=== PATIENT | male | born 1950 | race Caucasian/White ===

== ENCOUNTER 2022-03-17 13:02 | Outpatient (CLI) | payer MEDICARE, SELFPAY ==
--- NOTE | ~2022-03-17 | XR_ITS ---
EXAM: XR toe 3rd RT min 2V DATE: 03/17/2022 13:47 HISTORY: TRAUMA TO RT 3RD DIGIT 3 WEEKS AGO, PERSISTING PAIN . COMPARISON: None available. FINDINGS: Normal mineralization. Distracted avulsion fracture off of the anterior and proximal aspec t of the right third middle phalange, with likely intra-articular extension. No lytic or blastic lesi on. Joint spaces and physes are maintained. No erosion or periosteal change. Soft tissues within norm al limits. IMPRESSION: Distracted avulsion off the anterior and proximal aspect of the right third middle phalan ge, with likely intra-articular extension. Reviewed, dictated and finalized at location K. IMPRESSION: Distracted avulsion off the anterior and proximal aspect of the rig ht third middle phalange, with likely intra-articular extension.
--- NOTE | ~2022-03-17 | XR_ITS ---
EXAM: XR hip BI 2V w AP pelvis DATE: 03/17/2022 13:48 HISTORY: B/L HIP/GROIN PAIN X3 WEEKS, HX OF SURG LT HIP 2014 . COMPARISON: None available. FINDINGS: Decreased mineralization. No acute fracture or dislocation. No lytic or blastic lesion. Le ft hip arthroplasty without hardware fracture or abnormal perihilar hardware lucency. 2.3 cm ossific body adjacent to the right superior acetabulum, may reflect an extra-articular loose body or an old f ractured acetabular rim osteophyte. Degenerative change in the lower lumbar spine including large may dging osteophytes and vertebral body fusion. Bilateral SI joint fusion. Scattered pelvic and right gr eater tuberosity enthesopathy. Pelvic phleboliths. IMPRESSION: Left hip arthroplasty, without evident complication. Moderate degenerative change in the right hip. Changes of ankylosing spondylitis. Reviewed, dictated and finalized at location K. IMPRESSION: Left hip arthroplasty, without evident complication. Moderate degen erative change in the right hip. Changes of ankylosing spondylitis.
== END 2022-03-17 13:03 | disposition home or self-care (01) ==
DX: M25.551 Pain in right hip (principal); S93.104A Unspecified dislocation of right toe(s), initial encounter; R10.31 Right lower quadrant pain; R10.32 Left lower quadrant pain; T14.90XA Injury, unspecified, initial encounter; M79.89 Other specified soft tissue disorders; Z98.1 Arthrodesis status; M16.11 Unilateral primary osteoarthritis, right hip; M45.9 Ankylosing spondylitis of unspecified sites in spine
CPT/HCPCS: 73521; 73660

== ENCOUNTER 2023-05-19 11:14 | Outpatient (CLI) | payer MEDICARE, SELFPAY ==
--- NOTE | ~2023-05-19 | XR_ITS ---
XR knee RT 3V 05/19/2023 12:04 Indication: Acute pain. Procedure: 3 views right knee Comparison: No prior studies for comparison. Findings: Mild patellofemoral compartment osteoarthritis. No fracture or traumatic malalignment. No s ignificant joint effusion. No foreign bodies. Impression: 1: Mild patellofemoral compartment osteoarthritis. Reviewed, dictated and finalized at location B. Y PLAN SALES UNIT ADVISOR Impression: 1: Mild patellofemoral compartment osteoarthritis.
== END 2023-05-19 11:15 | disposition home or self-care (01) ==
PROVIDERS: Visit Provider Nurse Practitioner
DX: M17.11 Unilateral primary osteoarthritis, right knee (principal)
CPT/HCPCS: 73562

== ENCOUNTER 2025-01-18 01:06 | Emergency (ER) | payer MEDICARE, SELFPAY ==
--- NOTE | ~2025-01-18 | XR_ITS ---
XR soft tissue neck 01/18/2025 01:42 Indication: Possible toothpick foreign body swallowed Procedure: 2 views Soft tissues Comparison: No prior studies for comparison. 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 Severe mult ilevel uncinate and facet hypertrophy. No prevertebral soft tissue swelling. Epiglottis and aryepiglo ttic folds within normal limits. No subglottic narrowing. No evidence for enlargement of the lingual tonsils or adenoids. No foreign body. Impression: 1: Unremarkable neck soft tissues examination. Reviewed, dictated and finalized at location A. Impression: 1: Unremarkable neck soft tissues examination.
--- OUTSIDE RECORDS SUMMARY | 2025-01-18 01:09 | XMS_ITS | Clinical Summary ---
Author Organization [facility] Address [address] [place] [address] Phone Care Team Providers Care Edge Inker Name Role Phone Jensen Kenyon MD Primary Care Provider [phone] Bibiana Gallagher PRESS SET UP, STATION USHER Unavailable [phone] Allergies Active Allergy Reactions Criticality Noted Date Comments Ibuprofen Other (see Comments) Low 03/07/2013 Blisters in mouth Medications MAGNESIUM PO Take by mouth. Active POTASSIUM CHLORIDE PO Take by mouth. Active Zinc 50 MG Capsule Take by mouth. Active folic acid-vit B6-vit B12 0.8-10-0.115 MG Tablet Take 1 Tablet by mouth daily. Active Ascorbic Acid (VITAMIN C PO) Take by mouth. Active Active Problems Patient Care Coordination No te Formatting of this note migh t be different from the original. ~~ OF July 15, 2018 PATIENT DOES NOT QUALIFY FOR OCM~~NO DX/TX~~ Problem Noted Date Diagnosed Date Polyp of transverse colon 03/23/2022 Diverticulosis large intesti ne w/o perforation or abscess w/o bleeding 03/23/2022 Internal hemorrhoids without complication 2021 Right ureteral calculus 10/06/2018 Lumbar spondylitis 09/23/2017 Chronic right shoulder pain 12/13/2015 Osteoarthritis of left hip 04/17/2015 Erectile dysfunction Malaise and fatigue Calculus of kidney Flank pain Hematuria Dysuria Spondylosis of cervical joint with myelopathy Disturbance of skin sensation Carpal tunnel syndrome Hyperlipemia Resolved Problems Problem Noted Date Diagnosed Date Resolved Date BPH with obstruction/lower u rinary tract symptoms 08/20/2017 Family History Medical History Relation Name Comments Heart Disease Brother Wang Heart Attack Father Breast Cancer Mother No Known Problems Sister 1 Lina No Known Problems Sister 2 Bernadette Heart Disease Sister 3 Janette No Known Problems Sister 4 Joleen No Known Problems Sister 5 Reina Relation Name Status Comments Brother Wang Alive Father (Age 59) Mother (Age 69) Sister 1 Lina Alive Sister 2 Bernadette Alive Sister 3 Janette Sister 4 Joleen Alive Sister 5 Reina Alive Social History Tobacco Use Types Packs/Day Years Used Date Smoking Tobacco: Never Smokeless Tobacco: Never Alcohol Use Standard Drinks/Week Comments Yes 0 (1 standard drink = 0.6 oz pur e alcohol) occasionally PHQ-2 Answer Date Recorded PHQ-2 Score 0 03/13/2019 Sexually Active Control Partners Comments Yes Female Sex and Gender Information Value Date Recorded Sex Assigned at Not on file Legal Sex Male 8:48 AM CDT Gender Identity Not on file Sexual Orientation Not on file Last Filed Vital Signs Vital Sign Reading Time Taken Comments Blood Pressure 126/76 03/23/2022 12:27 PM CDT Pulse 45 03/23/2022 12:27 PM CDT Temperature 36.6 C (97.8 F) 03/23/2022 11:01 AM CDT Respiratory Rate 18 03/23/2022 12:27 PM CDT Oxygen Saturation 95% 03/23/2022 12:27 PM CDT Inhaled Oxygen Concentration - - Weight 88.5 kg (195 lb) 03/23/2022 11:13 AM CDT Height 185.4 cm (6' 1) 03/23/2022 11:13 AM CDT Body Mass Index 25.73 03/23/2022 11:13 AM CDT Plan of Treatment Health Maintenance Due Date Last Done Comments Parul 1994 Immunochemical Fecal Occult Blood 1994 Zoster Immunization (1 of 2) 1999 SARS-COV-2 Immunization (2023- season) 2024 Respiratory Syncytial Virus (RSV) Immunization (Adult) (1 - 1-dose 75+ series) 2024 Influenza Immunization (#1) 2025 Colonoscopy 03/23/2032 03/23/2022 Colorectal Cancer Screening 03/23/2032 Pneumococcal Immunization (5 0+ years) Completed 05/06/2017, 2014 Pneumococcal Immunization Combined Discontinued 05/06/2017, 2014 DTaP/Tdap/Td Immunization Discontinued 2017, 12/05/2017 TdaP Immunization Completed 12/06/2017, 12/05/2017 Hepatitis C Virus (HCV) Screening Completed 10/05/2018 Hepatitis B Immunization Aged Out No longer eligible based on patient's age to complete this topic Human Papillomavirus (HPV) Immunization Aged Out No longer eligible based on patient's age to complete this topic Meningococcal Immunization (ACWY) Aged Out No longer eligible based on patient's age to complete this topic Rotavirus Immunization Aged Out No lo nger eligible based on patient's age to complete this topic Medical Devices Implanted Type Area Machine Driller Device Identifier Shelf Expiration Date Model / Serial / Lot Continuum Shell Cluster [id number] - [id number] Implanted:Qty: 1 on 04/18/2015 by Harvey Johnson MD at [facility] IMPLANT Left: Hip [employer] 09/25/2024 [id number] / / [id number] Bone Screw 6.5x30 Self-Tap [id number] - [id number] Implanted:Qty: 1 on 04/18/2015 by Harvey Johnson MD at [facility] IMPLANT Left: Hip [employer] 12/25/2024 [id number] / / [id number] Bone Screw 6.5x25 Self-Tap [id number] - [id number] Implanted:Qty: 1 on 04/18/2015 by Harvey Johnson MD at [facility] IMPLANT Left: Hip [employer] 10/26/2023 [id number] / / [id number] M/L Taper Size 12.5 Extended Offset - [id number] Implanted:Qty: 1 on 04/18/2015 by Harvey Johnson MD at [facility] IMPLANT Left: Hip [employer] 10/25/2024 [id number] / / [id number] Femoral Head 12/14 Cocr 36mm +0 - [id number] Implanted:Qty: 1 on 04/18/2015 by Harvey Johnson MD at [facility] IMPLANT Left: Hip [employer] 01/25/2025 [id number] / / [id number] Cys Stent [employer] [id number] Ureteral - [id number] Implanted:Qty: 1 on 10/06/2018 by Tj Beavers MD at [facility] IMPLANT Right: Ureter COOK / INTERVENTIONAL UROLOGY 08/10/2021 [id number] / / [id number] Continuum Trilogy It Allofit It Acetabular Systems Vivacit-E Highly Crosslinked Polyethylene Neutral Liner 36mm Implanted:Qty: 1 on 04/18/2015 by Harvey Johnson MD at [facility] Left: Hip 09/26/2019 [id number] / / [id number] Insurance MEDICARE C [facility] MEDICARE [facility] MEDICARE * Guarantor: JONNA WHITE Account Type Relation to Patient Date of Phone Billing Address Third Alliance Party Liability Self 1950 [address] [place] [address] [employer] Care Teams Edge Inker Relationship Specialty Start Date End Date Jensen Kenyon MD [address] [address] PCP - General Internal Medicine 02/01/15 Bibiana Gallagher APRN, STATION USHER [address] [place] [address] Consulting Physician Urological Surgery 04/13/18
--- OUTSIDE RECORDS SUMMARY | 2025-01-18 01:09 | XMS_ITS | Encounter Summary ---
Author Organization [facility] Address [address] [place] [address] Phone Care Team Providers Care [employer] Fabrication Supervisor Name Role Phone Jensen Kenyon MD Primary Care Provider [phone] Bibiana Gallagher PLUMBING ASSEMBLER, SEWER SEPARATION DESIGNER Unavailable [phone] Liz Hoffmann PLUMBING ASSEMBLER, SEWER SEPARATION DESIGNER Unavailable [phone] Reason for Visit * Reason Onset Date Comments Appointment 08/20/2021 Encounter Details Date Type Department Care Team (Late st Contact Info) Description 08/20/2021 Telephone [facility] [place] [address] [place] [phone] Jericho Silverman MD [address] [place] [address] DR LOPEZ [address] [place] [id number] Appointment Social History Tobacco Use Types Packs/Day Years [...] on file Sexual Orientation Not on file documented as of this encounter Miscellaneous Notes * Telephone Encounter - Mya King E - 08/21/2021 7:47 AM CST He has been added to your schedule for 09/29 @ 1:30PM DOWEL MACHINE OPERATOR * Telephone Encounter - Jericho Silverman MD - 08/20/2021 3:04 PM CST Mya he does not need to be referred back OK to give him next available regular EP appt.By: JERICHO SILVERMAN MD; 08/20/2021, 3:04 PM WOOD DOWEL MACHINE OPERATOR DOWEL MACHINE OPERATOR * Telephone Encounter - Demertia Kinghellen Grant - 08/20/2021 2:[address] Silverman, Pt called in wanting to get an sophia w/ you due to having some Carpal Tunnel issues at the moment. Hehasn't been seen by you in 3-4 years, advised the pt that we would need a referral sent over but I would still forward the msg to you. DOWEL MACHINE OPERATOR documented in this encounter Plan of Treatment Not on file documented as of this encounter Visit Diagnoses Not on filedocumented in this encounter Additional Health Concerns Assessment Noted Time PHQ-9 Depression Total Score: 0 01/27/20 19 10:54 AM CDT documented as of this encounter Care Teams [employer] Fab[employer] Supervisor Relationship Specialty Start Date End Date Jensen Kenyon MD [address] [address] PCP - General Internal Medicine 02/01/15 Bibiana Gallagher APRN, SEWER SEPARATION DESIGNER [address] [place] [address] Consulting Physician Urological Surgery 04/13/18 Liz Hoffmann APRN, SEWER SEPARATION DESIGNER [address] [place] [address] Nurse Practitioner Orthopaedic Surgery 10/05/18 4 documented as of this encounter
--- OUTSIDE RECORDS SUMMARY | 2025-01-18 01:09 | XMS_ITS | Encounter Summary ---
Author Organization [facility] Address [address] [place] [address] Phone Care Team Providers Care Slot Operations Manager Name Role Phone Jensen Kenyon MD Primary Care Provider [phone] Bibiana Gallagher HOUSE SHORER, COOK CASHIER FOOD PREP Unavailable [phone] Liz Hoffmann HOUSE SHORER, COOK CASHIER FOOD PREP Unavailable Encounter Details Date Type Department Care Team (Latest Contact Info) Description 04/16/[address] [facility] Services [address] [place] [address] Ok Canas, PAC [address] [place] [address] Benign prostatic hyperplasia, unspecified whether lower urinary tract symptoms present (Primary Dx) Social History Tobacco Use Types Packs/Day Years [...] on file documented as of this encounter Plan of Treatment Not on file documented as of this encounter Results * PSA DIAGNOSTIC,TOTAL (08/15/2020 9:55 AM SUBSTANCE ADDICTION COORDINATOR) PSA, TOTAL (PROSTATIC SPECIFIC ANTIGEN) 1.47 0.00 - 4.00 ng/mL 08/15/2020 11:33 AM SUBSTANCE ADDICTION COORDINATOR [facility] Comment:Performed by chemilu minometric assay on the Siemens ADVIA Centaur. Values obtained with different methods cannot be used interchangeably for patient monitoring. PSA is not a specific test for prostatic carcinoma and can be elevated with benign prostatic disease or following prostatic manipulation. Heterophilic antibodies may interfere with this assay. Blood Venipuncture / Unknown 08/15/2020 9:55 AM SUBSTANCE ADDICTION COORDINATOR 08/15/2020 10:34 AM SUBSTANCE ADDICTION COORDINATOR us Ok Canas PAC CHEMISTRY ORDERABLES Final Res ult [facility] [address] [place], [place] [id number] documented in this encounter Visit Diagnoses Diagnosis Benign prostatic hyperplasia, unspecified whether lower urinary tract symptoms present- Primary documented in this encounter Additional Health Concerns Assessment Noted Time PHQ-9 Depression Total Score: 0 01/27/20 19 10:54 AM CDT documented as of this encounter Care Teams Slot Operations Manager Relationship Specialty Start Date End Date Jensen Kenyon MD [address] [facility] [address] [place], [place] [id number] PCP - General Internal Medicine 02/01/15 Bibiana Gallagher APRN, COOK CASHIER FOOD PREP [address] [place] [address] Consulting Physician Urological Surgery 04/13/18 Liz oHffmann APRN, COOK CASHIER FOOD PREP [address] [place] [address] Nurse Practitioner Orthopaedic Surgery 10/05/18 4 documented as of this encounter
[2025-01-18 01:11] VITALS: BP 167/90; PULSE 50; RESP 18; TEMP 36.3; O2SAT 98
[2025-01-18 02:04] VITALS: BP 141/82; PULSE 44; RESP 19; O2SAT 96
[2025-01-18 02:31] LABS: Hematocrit 39.0 % (42.0-52.0); Hemoglobin 12.9 g/dL (14.0-18.0); Immature Granulocyte Percent A 0.0 % (0-0.5); Lymphocytes Absolute Auto 1.60 K/mm3 (0.9-3.2); Mean Corpuscular HGB Conc 33.1 g/dl (32-36); Mean Corpuscular Hemoglobin 32.4 pg (26-34); Mean Corpuscular Volume 98.0 fl (80-100); Nucleated Red Blood Cells Absolute Auto 0.000 K/mm3 (0.0-0.012); Nucleated Red Blood Cells Perc 0.0 % (0.0-0.2); Platelet Count Result 150 k/mm3 (150-375); Red Blood Count 3.98 M/mm3 (4.6-6.20); White Blood Count 4.6 K/mm3 (4.5-10.0)
[2025-01-18 02:52] LABS: Alanine Aminotransferase 23 U/L (6-50); Albumin Level 3.9 g/dL (3.5-5.1); Alkaline Phosphatase 83 U/L (38-126); Anion Gap 7 mmol/L (4-12); Aspartate Amino Transferase 31 U/L (17-59); Bilirubin,Total 0.4 mg/dL (0.2-1.3); Blood Urea Nitrogen 14 mg/dL (9-20); Calcium 8.9 mg/dL (8.4-10.2); Carbon Dioxide 25 mmol/L (22-30); Chloride 106 mmol/L (98-107); Estimated CRCL calculation 78 ml/min; Estimated Glomerular Filt Rate > 60; Glucose 105 mg/dL (65-110); Potassium 3.9 mmol/L (3.4-5.0); Sodium 138 mmol/L (137-145); Total Protein 6.9 g/dL (6.3-8.2)
[2025-01-18 03:00] VITALS: BP 129/84; PULSE 44; RESP 16; O2SAT 96
--- NOTE | 2025-01-18 03:29 | ED_ITS ---
HPI - Skin/Abscess/Foreign Bdy General Chief complaint: Skin/Abscess/Foreign Body Stated complaint: have tooth pick stuck in throat Time Seen by Provider: 01/18/25 03:28 Source: patient Mode of arrival: ambulatory Limitations: no limitations History of Present Illness HPI narrative: Patient presents with concern for a toothpick/half a toothpick stuck in his throat. He fell asleep with this in his month and believes he partially swallowed it. States he can feel it with his finger he puts this back of his mouth. Woke up at 11:30 a.m. with the symptoms. Denies any shortness of breath or chest pain he is having some right neck pressure. While awaiting further assessment, he then states that he believes he swallowed it as he no longer feels that in same location, cannot feel it at all. Not on anticoagulation. Last oral intake 5 p.m.. States when he could still feel the end with his finger it still had some firmness/rigidity to it. Exam 2 Narrative: GENERAL: Well-appearing, well-nourished, and in no acute distress. HEAD: Normocephalic, atraumatic. EYES: Non injected, non icteric ENT: Nares clear, no rhinorrhea or epistaxis. Gross auditory acuity intact. NECK: Supple. No meningismus. CHEST: Speaking in full sentences. No respiratory distress. No stridor. Nonlabored HEART: Bradycardic rate and rhythm. . ABDOMEN: Soft, nondistended. EXTREMITIES: Normal range of motion. No lower extremity edema. SKIN: Warm, dry, no rash. NEURO: No focal deficits. Alert and oriented. Answering questions. Following commands. Normal speech without aphasia or dysarthria. PSYCH: Normal mood and affect. Course Vital Signs Vital signs: Vital Signs Temperature 97.4 F L 01/18/25 01:11 Pulse Rate 50 L 01/18/25 01:11 Respiratory Rate 18 01/18/25 01:11 Blood Pressure 167/90 H 01/18/25 01:11 Pulse Oximetry 98 01/18/25 01:11 Oxygen Delivery Room Air 01/18/25 01:11 Temperature 97.4 F L 01/18/25 01:11 Pulse Rate 43 L 01/18/25 04:00 Respiratory Rate 17 01/18/25 04:00 Blood Pressure 134/80 01/18/25 04:00 Pulse Oximetry 97 01/18/25 04:00 Oxygen Delivery Room Air 01/18/25 01:11 MDM - Skin/Abscess/Foreign Bdy MDM Narrative Medical decision making narrative: Patient presents with concern for a toothpick / half toothpick stuck in the back of his throat. He states he fell asleep with this in his mouth about 11 30 he and felt like he had partially swallowed it and it was in the back was throat. States he could feel it with his finger when he tried to remove it himself but was unable to grab and pull it out. States it still had a bit of rigidity the/firmness to it. In the emergency department he is afebrile vital signs notable for hypertension and bradycardia. Normocytic anemia. While awaiting assessment in the emergency department, he does state that he believes he swallowed a toothpick. Still has a bit of residual right neck pressure. Not apparent on plain film. Advised that the next step would need to be pursuing CT imaging to determine location of the foreign body, especially given that it represents a high perforation risk. Patient not desiring to proceed with CT imaging of neck/soft tissue & chest. Patient states he recently had CT imaging given he had a kidney stone he does not want another CT. It was explaiend multiple times the utility of this study especially to note the location in if endoscopy versus bronchoscopy versus alternative interventions would be required. No ENT coverage currently. Discussed with GI Dr Mora approximately 04:45am who advises I try again to recommend imaging as he can not proceed with endoscopy without confirmation given risks of anesthesia, etc. Extensive conversation was had with the patient at bedside to again encourage proceeding and why we do so. He is otherwise of sound mind and does not appear to be altered in a way that would prevent him from making decisions for himself. He is choosing to leave against medical advice at this time. We discussed the risks and benefits and he did sign documentation that was placed in his chart. I did encourage him to return to the emergency department at any time for new or worsening symptoms and he acknowledges and verifies understanding. He was given a brief discharge packet of instructions to review. Differential Diagnosis Differential diagnosis: Likely other (Perforation of tissues of posterior oropharynx/neck; foreign body in posterior oropharynx verses upper airway verses lower airway verses GI tract) Lab Data Attestation: I reviewed the patient's lab results. Lab results narrative: Normal renal function 01/18/25 02:23 01/18/25 02:23 Labs: Lab Results 01/18/25 Range/Units 02:23 WBC 4.6 (4.5-10.0) K/mm3 RBC 3.98 L (4.6-6.20) M/mm3 Hgb 12.9 L (14.0-18.0) g/dL Hct 39.0 L (42.0-52.0) % MCV 98.0 (80-100) fl MCH 32.4 (26-34) pg MCHC 33.1 (32-36) g/dl RDW 13.3 (11.5-14.5) % Plt Count 150 (150-375) k/mm3 MPV 10.3 (7.4-10.4) fl Immature Gran % (Auto) 0.0 (0-0.5) % Neut % (Auto) 53.7 (45.5-73.1) % Lymph % (Auto) 34.6 (18.3-44.2) % [place] % (Auto) 8.9 H (2.6-8.5) % Eos % (Auto) 2.4 (0-4.4) % Baso % (Auto) 0.4 (0.2-1.2) % Lymph # (Auto) 1.60 (0.9-3.2) K/mm3 [place] # (Auto) 0.4 (0.1-0.6) K/mm3 Eos # (Auto) 0.1 (0-0.3) K/mm3 Baso # (Auto) 0.0 (0.0-0.1) K/mm3 Abs Immat Gran (auto) 0.00 (0.00-0.031) K/mm3 Absolute Neuts (auto) 2.5 (1.3-6.7) K/mm3 Absolute Nucleated RBC 0.000 (0.0-0.012) K/mm3 Nucleated RBC % 0.0 (0.0-0.2) % Sodium 138 (137-145) mmol/L Potassium 3.9 (3.4-5.0) mmol/L Chloride 106 (98-107) mmol/L Carbon Dioxide 25 (22-30) mmol/L Anion Gap 7 (4-12) mmol/L BUN 14 (9-20) mg/dL Creatinine 0.80 (0.7-1.3) mg/dL Estim Creat Clear Calc 78 ml/min Estimated GFR > 60 (59 - ) Glucose 105 (65-110) mg/dL Calcium 8.9 (8.4-10.2) mg/dL Total Bilirubin 0.4 (0.2-1.3) mg/dL AST 31 (17-59) U/L ALT 23 (6-50) U/L Alkaline Phosphatase 83 (38-126) U/L Total Protein 6.9 (6.3-8.2) g/dL Albumin 3.9 (3.5-5.1) g/dL Imaging Data Radiologist's impression: CXR Soft TIssue Neck Stat Rad: The retropharyngeal soft tissues appear within normal limits. The epiglottis is normal. No radiopaque foreign bodies identified. A tooth PEG (sic) can be hard to visualize on plain film. If clinically indicated consider CT chest for further evaluation. Truc-ff-[id number] degenerative changes in the cervical spine. No incidental findings. Discharge Plan Discharge Clinical Impression: Normocytic anemia Foreign body, swallowed Qualifiers: Encounter type: initial encounter Qualified Code(s): T18.9XXA - Foreign body of alimentary tract, part unspecified, initial encounter Patient Disposition: Left Against Medical Advice Condition: Stable Instructions: Esophageal Foreign Body (ED), Anemia (ED), Foreign Body in the Pharynx (ED), Foreign Body Ingestion (ED) Additional Instructions: Your choosing to leave without proceeding with a CT scan. Do not hesitate to return to the emergency department at any time with any new or worsening symptoms. Patient Language: Croatian Follow-up/Referrals: PHYSICIAN,SENIOR FINANCIAL CONSULTANT [Primary Care Provider] - Time of Disposition: 05:03
--- OUTSIDE RECORDS SUMMARY | 2025-01-18 03:34 | XMS_ITS | Clinical Summary ---
Author Organization [facility] Address [address] [place] [address] Care Team Providers Care Asset Protection Associate Name Role Phone Mary Chen INVENTORY ASSOCIATE Unavailable [phone] Edwin Jensen MD Primary Care Provider [phone] Allergies Active Allergy Reactions Criticality Noted Date Comments Ibuprofen Other (see comment),Unknown Low 03/07/2013 Blisters in mouth Blisters in mouth Medications multi vitamin/minerals tablet Take 1 tablet by mouth as needed. Active Zinc 50 MG Cap Take 1 capsule by mouth twice a week. With medication changes pt only takes vitamins 2-3x q week Active Pyridoxine HCl (VITAMIN B-6 OR) Take 1 tablet by mouth daily. Active MAGNESIUM OR Takes several days per week Active POTASSIUM OR Takes several days per week Active finasteride (PROSCAR) 5 MG tabletIndications:Benig n prostatic hyperplasia with urinary hesitancy Take 1 tablet (5 mg total) by mouth daily. 90 tablet 1 10/25/19 25 Active methocarbamol (ROBAXIN) 750 MG TabIndications:Chronic midline low back pain without sciatica Take 1 tablet (750 mg total) by mouth 3 (three) times daily as needed. 180 tablet 1 10/25/19 25 Active tamsulosin (FLOMAX) 0.4 MG CapIndications:Benign prostatic hyperplasia with urinary hesitancy Take 1 capsule (0.4 mg total) by mouth daily. 90 capsule 3 10/25/19 25 2025 Active sildenafil (VIAGRA) 50 MG tabletIndications:Erect ile dysfunction, unspecified erectile dysfunction type Take nightly as needed for ED 10 tablet 3 10/25/19 25 Active evolocumab (REPATHA) 140 MG/ML injection (SYRINGE)Indications:Pu re hypercholesterolemia Inject 1 mL (140 mg total) into the skin every 14 (fourteen) days. 2 mL 2 10/25/19 25 Active traMADol (ULTRAM) 50 MG tabletIndications:Chron ic Pain Take 1 tablet (50 mg total) by mouth daily as needed for Pain. Indications: Chronic Pain 30 tablet 10/25/19 25 Active Active Problems Problem Noted Date Diagnosed Date Lung nodule seen on imaging study 05/27/2023 Internal hemorrhoids without complication 2021 Polyp of transverse colon 03/23/2022 Diverticulosis large intesti ne w/o perforation or abscess w/o bleeding 03/23/2022 Right ureteral calculus 10/06/2018 Onychomycosis 10/05/2018 Osteoarthritis of multiple joints 05/09/2018 Assessment & Plan (05/09/2018 10:02 AM MOLECULAR SPECTROSCOPIST): For neck u seen dr edwards Back still bothering Not even tylenol History of kidney stones 05/09/2018 Assessment & Plan (05/09/2018 10:04 AM MOLECULAR SPECTROSCOPIST): Seen urology Multiple surgeries atleast three times Last episode >4yrs Primary insomnia 05/09/2018 Assessment & Plan (05/09/2018 10:05 AM MOLECULAR SPECTROSCOPIST): don helping Half tab at bed time r donef* Calculus of kidney 05/09/2018 Assessment & Plan (05/09/2018 10:09 AM MOLECULAR SPECTROSCOPIST): Urine dip stick for blood in the urine* Hyperlipemia 04/26/2018 Assessment & Plan (05/09/2018 10:01 AM MOLECULAR SPECTROSCOPIST): Diet controlled Much better in recent labs Alberto in 1yr Encourage diet Vitamin D deficiency 09/24/2017 Osteoarthritis of left hip 04/17/2015 Assessment & Plan (05/09/2018 10:04 AM MOLECULAR SPECTROSCOPIST): Left hip arthoplasty by dr espinoza stable Enlarged prostate 2014 Benign prostatic hyperplasia 12/12/2013 Assessment & Plan (05/09/2018 10:00 AM MOLECULAR SPECTROSCOPIST): Seen INVENTORY ASSOCIATE with dr prater Not on meds Last psa jul 2017 normal Esophageal reflux 04/06/2013 Assessment & Plan (05/09/2018 10:00 AM MOLECULAR SPECTROSCOPIST): asymtomatic Never had ulcers Not on meds any more Just watching with certsain foods Resolved Problems Problem Noted Date Diagnosed Date Resolved Date Elevated LDL cholesterol level 06/18/2014 05/09/2018 Encounters Date Type Department Care Team Description 12/25/2024 Telephone [place] [address] [facility] [address] [place] [address] Edwin Jensen MD Appointment Request 10/26/2024 Telephone [place] [address] [facility] [address] [place] [address] Edwin Jensen MD Medication Information 10/26/2024 Travel 10/25/2024 Telephone [place] [address] [facility] [address] [place] [address] Edwin Jensen MD Information; Returned Call 10/24/2024 9:00 AM CDT Office Visit [place] [address] [place] [address] Edwin Jensen MD Follow Up; Hyperlipidemia; Erectile Dysfunction; Benign Prostatic Hypertrophy; Insomnia NOS; Vitamin D Deficiency; Arthritis (Multiple joints); GERD 10/24/2024 Results Follow-Up [place] [address] [facility] [address] [place] [address] Edwin Jensen MD LIPID PANEL, COMPREHENSIVE METABOLIC PANEL, CBC W/DIFF AUTOMATED, MG/PCCL UDS SCREEN 10/24/2024 Travel from Last 3 Months Immunizations Immunization Administration Dates Next Due Influenza Adult (Generic) 09/07/2022(Def erred: Patient/family declined),05/10/2020(Deferred: Patient Refused) Pneumococcal (Pneumovax 23) 2014 Pneumococcal (Prevnar 13) 05/06/2017 Tdap (Generic) 12/05/2017 Family History Medical History Relation Comments Heart Attack Father Cancer Mother Bone Cancer Hypertension Mother Relation Status Comments Father Mother Social History Tobacco Use Types Packs/Day Years Used Date Smoking Tobacco: Never Smokeless Tobacco: Never Tobacco Cessation:Counseling Given: Yes Comments:Counseled by Dr. Jensen. Alcohol Use Standard Drinks/Week Comments Yes 0 (1 standard drink = 0.6 oz pur e alcohol) MONTHLY PHQ-2 Answer Date Recorded Patient Health Questionnaire-2 Score 1 04/25/2024 Sex and Gender Information Value Date Recorded Sex Assigned at Male 08/10/2024 7:36 AM MOLECULAR SPECTROSCOPIST Legal Sex Male 8:42 PM CDT Gender Identity Not on file Sexual Orientation Not on file Last Filed Vital Signs Vital Sign Reading Time Taken Comments Blood Pressure 108/57 10/24/2024 9:01 AM CDT Pulse 47 10/24/2024 9:01 AM CDT Temperature 35.6 C (96.1 F) 10/24/2024 9:01 AM CDT Respiratory Rate 16 10/24/2024 9:01 AM CDT Oxygen Saturation 96% 10/24/2024 9:01 AM CDT Inhaled Oxygen Concentration - - Weight 90.3 kg (199 lb) 10/24/2024 9:01 AM CDT Height 185.4 cm (6' 1) 10/24/2024 9:01 AM CDT Body Mass Index 26.25 10/24/2024 9:01 AM CDT Plan of Treatment Upcoming Encounters Date Type Department Care Team (Late st Contact Info) Description 04/25/2025 9:40 AM CDT Office Visit [facility] - [place] [address] [address] [place] [address] Edwin Jensen MD [address] [place] [id number] Health Maintenance Due Date Last Done Comments RSV Immunization or 60+ Years (1 - 1-dose 75+ series) 2024 PHQ-2 (Physician [place]) 06/28/2024 04/25/2024 COVID-19 Vaccine ( - season) 2025 Postponed from 02/27/2024 (Patient Refused) Zoster Vaccines (1 of 2) 04/25/2025 Pos tponed from 1999 (Patient Refused) DTaP, Tdap and Td Vaccines (2 - Td or Tdap) 12/06/2027 12/05/2017 Colorectal Cancer Screening Colonoscopy (10 Years) 03/23/2032 03/23/2022, 02/12/2017, 02/04/2012, Additional history exists Annual Medicare Wellness Visit 06/02/2040 05/27/2022 Postponed from 05/28/2023 (Patient Refused) Pneumococcal Vaccine: 50+ Years Completed 05/06/2017, 2014 Hepatitis C Completed 10/05/2018 Colorectal Cancer Screening FIT-DNA (3 Years) Discontinued 05/18/2019 Meningococcal B Vaccine Aged Out No l onger eligible based on patient's age to complete this topic Meningococcal Vaccine Aged Out No charlene chanel eligible based on patient's age to complete this topic RSV Immunizations Under 20 Months Aged Out No longer eligible based on patient's age to complete this topic Procedures Procedure Name Priority Date/Time Associated Diagnosis Comments CBC W/DIFF AUTOMATED Routine 10/24/2024 9:49 AM CDT Drug therapy COMPREHENSIVE METABOLIC PANEL Routine 10/24/2024 9:49 AM CDT Drug therapy LIPID PANEL Routine 10/24/2024 9:49 AM CDT Drug therapy MG/PCCL UDS SCREEN Routine 10/24/2024 9: 49 AM CDT Drug therapy COLLECTION VENOUS BLOOD VENIPUNCTURE Routine 10/24/2024 9:46 AM CDT Drug therapy COLONOSCOPY GENERIC (SCAN ORDER) Routine 03/23/2022 12:00 AM CDT COLOGUARD (SCAN ORDER) Routine 05/18/2019 HEPATITIS C ANTIBODY Routine 10/05/2018 8:50 AM CDT Dermatophytosis of nail from Last 3 Months or Most Recently Relevant to Health Maintenance Results * MG/PCCL UDS SCREEN (10/24/2024 9:49 AM CDT) FENTANYL SCREEN (U) NEGATIVE <0.5 ng/mL [facility] Comment: See Note A See Note A MORPHINE (U) NEGATIVE <10 ng/mL [facility] Comment: See Note A See Note A AMPHETAMINES PM NEGATIVE <500 ng/mL [facility] Comment: See Note A See Note A BARBITURATES PM (U) NEGATIVE <300 ng/mL [facility] Comment: See Note A See Note A BENZODIAZEPINES PM (U) NEGATIVE <100 ng/mL [facility] Comment: See Note A See Note A COCAINE METABOLITE PM (U) NEGATIVE <150 ng/mL [facility] Comment: See Note A See Note A MARIJUANA METABOLITE PM (U) NEGATIVE <20 ng/mL [facility] Comment: See Note A See Note A METHADONE PM (U) NEGATIVE <100 ng/mL [facility] Comment: See Note A See Note A OPIATES PM (U) NEGATIVE <100 ng/mL [facility] Comment: See Note A See Note A OXYCODONE PM (U) NEGATIVE <100 ng/mL [facility] Comment: See Note A See Note A CREATININE RANDOM (U) 98.0 > or = 20.0 mg/dL [facility] pH PM (U) 5.5 4.5 - 9.0 [facility] OXIDANT NEGATIVE <200 mcg/mL [facility] NOTE [facility] Comment: This drug testing is for medical treatment only. Analysis was performed as non-forensic testing and these results should be used only by healthcare providers to render diagnosis or treatment, or to monitor progress of medical conditions. Note A: The results are presumptive; based only on screening methods, and they have not been confirmed by a definitive method. LDT Notes: Confirmation tests were developed and their analytical performance characteristics have been determined by [facility]. It has not been cleared or approved by the FDA. This assay has been validated pursuant to the CLIA regulations and is used for clinical purposes. Healthcare Providers needing Interpretation assistance, please contact us at [phone] ( ) M-F, 8am to 10pm EST URINE SPECIMEN / Unknown 10/24/2024 9:49 AM CDT 10/27/2024 1:20 AM CDT Narrative Resulting Agency Comment Performing Organization Information: Site ID: [id number] Name: [facility] Address: [address] [place] [address] Director: Wil Spencer Site ID: [id number] Name: [facility] Address: [address] [place] [address] Director: Reinaldo Samano MD us Edwin Jensen MD URINE ORDERABLES Final Result [facility] [place] [address] [place] [address] [employer] [address] [place] [address], * (ABNORMAL) COMPREHENSIVE METABOLIC PANEL (10/24/2024 9:49 AM CDT) SODIUM S/P/B 144 136 - 145 MMOL/L 10/24/2024 3:50 PM CDT [facility] POTASSIUM S/P/B 4.4 3.5 - 5.1 MMOL/L 10/24/2024 3:50 PM CDT [facility] CHLORIDE S/P/B 109(H) 98 - 107 MMOL/L 10/24/2024 3:50 PM CDT [facility] CO2 27.7 21 - 32 MMOL/L 10/24/2024 3:50 PM CDT [facility] GLUCOSE 92 70 - 99 MG/DL 10/24/2024 3:50 PM CDT [facility] BUN 15 7 - 18 MG/DL 10/24/2024 3:50 PM CDT [facility] CREATININE S/P/B 0.80 0.70 - 1.30 MG/DL 10/24/2024 3:50 PM CDT [facility] CALCIUM S/P/B 8.8 8.4 - 10.5 MG/DL 10/24/2024 3:50 PM CDT [facility] BILIRUBIN TOTAL S/P/B 0.7 0.2 - 1.0 MG/DL 10/24/2024 3:50 PM T [facility] ALKALINE PHOSPHATASE S/P/B 109 45 - 115 U/L 10/24/2024 3:50 PM CDT [facility] AST 17 15 - 37 U/L 10/24/2024 3:50 PM CDT [facility] ALT 20 16 - 63 U/L 10/24/2024 3:50 PM T [facility] TOTAL PROTEIN S/P/B 6.9 6.4 - 8.2 G/DL 10/24/2024 3:50 PM T [facility] ALBUMIN S/P/B 3.7 3.4 - 5.0 G/DL 10/24/2024 3:50 PM T [facility] ANION GAP 7.3 5 - 15 MMOL/L 10/24/2024 3:50 PM T [facility] Comment:REFERENCE RANGE NOT ESTABLISHED OSMOLALITY (CALC) 298 MOSM/KG 025 3:50 PM T [facility] Comment:REFERENCE RANGE NOT ESTABLISHED GFR ESTIMATE >90 >90 ML/MIN/1. 73 M2 10/24/2024 3:50 PM T [facility] GFR NOTES GFR REFERENCE S: 10/24/2024 3:50 PM T [facility] Comment: THE ESTIMATED GFR IS CALCULATED USING THE 2020 CKD-EPI EQUATION. THE FOLLOWING CATEGORIES FOR GRADING RENAL FUNCTION ARE RECOMMENDED BY THE INTERNATIONAL SOCIETY OF NEPHROLOGY (KDIGO 2012 CLINICAL PRACTICE GUIDELINE). G1,NORMAL OR HIGH: >89 ml/min/1.73 m2 G2,MILDLY DECREASED: 60-89 ml/min/1.73 m2 G3A,MILDLY TO MODERATELY DECREASED: 45-59 ml/min/1.73 m2 G3B,MODERATELY TO SEVERELY DECREASED: 30-44 ml/min/1.73 m2 G4,SEVERELY DECREASED: 15-29 ml/min/1.73 m2 G5,KIDNEY FAILURE: <15 ml/min/1.73 m2 10/24/2024 9:49 AM CDT Edwin Jensen MD LABORATORY Final Result [facility] [address] [place] [address], [place] [phone] * (ABNORMAL) LIPID PANEL (10/24/2024 9:49 AM CDT) CHOLESTEROL 164 <200 MG/DL 10/24/2024 3:50 PM CDT [facility] TRIGLYCERIDES 55 <150 MG/DL 10/24/2024 3:50 PM CDT [facility] HDL 39(L) >40 MG/DL 10/24/2024 3:50 PM CDT [facility] LDL-C 114(H) <100 MG/DL 10/24/2024 3:50 PM CDT [facility] VLDL CALCULATION 11 5 - 28 MG/DL 10/24/2024 3:50 PM CDT [facility] CHOL/HDL RATIO 4.2(H) 0.0 - 4.0 10/24/2024 3:50 PM CDT [facility] LDL/HDL 2.9(H) 0.41 - 2.13 10/24/2024 3:50 PM CDT [facility] NON HDL CHOLESTEROL 125 <140 MG/DL 10/24/2024 3:50 PM CDT [facility] 10/24/2024 9:49 AM CDT Edwin Jensen MD LABORATORY Final Result Performing Organization Address City/[facility]/ZIP Co de Phone Number [facility] [address] [place] [address], [place] [phone] * (ABNORMAL) CBC W/DIFF AUTOMATED (10/24/2024 9:49 AM CDT) [facility] WBC 4.58 4.00 - 10.80 x10'3/uL 10/24/2024 2:40 PM CDT [facility] RBC 4.40(L) 4.50 - 6.10 x10'6/uL 10/24/2024 2:40 PM CDT [facility] HGB 14.2 13.0 - 18.0 G/DL 10/24/2024 2:40 PM CDT [facility] HCT 43.1 37.0 - 52.0 % 10/24/2024 2:40 PM CDT [facility] MCV 98.0 78.0 - 100.0 FL 10/24/2024 2:40 PM CDT [facility] MCH 32.3(H) 27.0 - 31.0 PG 10/24/2024 2:40 PM CDT [facility] MCHC 32.9(L) 33.0 - 36.0 G/DL 10/24/2024 2:40 PM CDT [facility] RDW 13.2 11.5 - 14.5 % 10/24/2024 2:40 PM CDT [facility] PLT 159 150 - 350 x10'3/uL 10/24/2024 2:40 PM CDT [facility] MPV 11.4(H) 7.4 - 10.4 FL 10/24/2024 2:40 PM CDT [facility] DIFFERENTIAL TYPE AUTOMATED DIFFERENTIAL 10/24/2024 2:40 PM CDT [facility] NEUTROPHILS % 49.1 % 10/24/2024 2:40 PM CDT [facility] LYMPHOCYTES % 40.0 % 10/24/2024 2:40 PM CDT [facility] MONOCYTES % 9.0 % 10/24/2024 2:40 PM CDT [facility] EOSINOPHILS % 1.7 % 10/24/2024 2:40 PM CDT [facility] BASOPHILS % 0.2 % 10/24/2024 2:40 PM CDT [facility] IMMATURE GRANS % 0.0 % 10/24/2024 2:40 PM CDT [facility] ABS. NEUTROPHILS 2.25 1.60 - 8.30 x10'3/uL 10/24/2024 2:40 PM CDT [facility] ABS. LYMPHOCYTES 1.83 0.80 - 4.70 x10'3/uL 10/24/2024 2:40 PM CDT [facility] ABS. MONOCYTES 0.41 0.00 - 1.50 x10'3/uL 10/24/2024 2:40 PM CDT [facility] ABS. EOSINOPHILS 0.08 0.00 - 0.40 x10'3/uL 10/24/2024 2:40 PM CDT [facility] ABS. BASOPHILS 0.01 0.00 - 0.20 x10'3/uL 10/24/2024 2:40 PM CDT [facility] ABS. IMMATURE GRANULOCYTES 0.00 0.00 - 0.03 x10'3/uL 10/24/2024 2:40 PM CDT [facility] 10/24/2024 9:49 AM CDT us Edwin Jensen MD LABORATORY Final Result [facility] [address] [place] [address], * COLONOSCOPY (03/23/2022 12:00 AM CDT) 03/23/2022 [facility] Scanned SCANNING Final Resu lt [facility] ONBASE * COLOGUARD (SCAN) (05/18/2019) COLOGUARD NEGATIVE Stool specimen (specimen) 05/18/2019 us Documents Scanned SCANNING Edited Result - Final * HEPATITIS C ANTIBODY (10/05/2018 8:50 AM CDT) HEPATITIS C AB NON-REACTI VE NON-REACTI VE 10/05/2018 11:54 AM CDT [facility] 10/05/2018 8:5 0 AM CDT Eugene Smith DPM LABORATORY Final Resul t [facility] [address] [place] [address], from Last 3 Months or Most Recently Relevant to Health Maintenance Insurance [employer] Care Teams Asset Protection Associate Relationship Specialty Start Date End Date Edwin Jensen MD [address] [facility] [address] [place] [address] PCP - General INTERNAL MEDICINE 11/30/22 Mary Chen NP Referring Physician NURSE PRACTITIONER 05/27/22
--- OUTSIDE RECORDS SUMMARY | 2025-01-18 03:34 | XMS_ITS | Encounter Summary ---
Author Organization [facility] pital Address [address] [place] [address] Phone Care Team Providers Care Clerk Checker Name Role Phone Jensen Kenyon MD Primary Care Provider [phone] Bibiana Gallagher TABLET REPAIR, MANAGER SKILLED Unavailable [phone] Liz Hoffmann TABLET REPAIR, MANAGER SKILLED Unavailable Reason for Visit * Reason Onset Date Comments Appointment 08/20/2021 Encounter Details Date Type Department Care Team (Late st Contact Info) Description 08/20/2021 Telephone [facility] [address] 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 Silverman, Pt called in wanting to get an sophia w/ you due to having some Carpal Tunnel issues at the moment. Hehasn't been seen by you in 3-4 years, advised the pt that we would need a referral sent over but I would still forward the msg to you. 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 documented in this encounter Plan of Treatment Not on file documented as of this encounter Visit Diagnoses Not on filedocumented in this encounter Additional Health Concerns Assessment Noted Time PHQ-9 Depression Total Score: 0 01/27/20 19 10:54 AM CDT documented as of this encounter Care Teams Clerk Checker Relationship Specialty Start Date End Date Jensen Kenyon MD [address] [address] PCP - General Internal Medicine 02/01/15 Bibiana Gallagher APRN, MANAGER SKILLED [address] [place] [address] Consulting Physician Urological Surgery 04/13/18 Liz Hoffmann APRN, MANAGER SKILLED [address] [place] [address] Nurse Practitioner Orthopaedic Surgery 10/05/18 4 documented as of this encounter
--- OUTSIDE RECORDS SUMMARY | 2025-01-18 03:34 | XMS_ITS | Encounter Summary ---
Author Organization [facility] Address [address] [place] [address] Phone Care Team Providers Care Supervisor Transferring And Boxing Name Role Phone Jensen Kenyon MD Primary Care Provider [phone] Bibiana Gallagher RESAW TAILER, SHUTTLE VENEERING SUPERVISOR Unavailable [phone] Liz Hoffmann RESAW TAILER, SHUTTLE VENEERING SUPERVISOR Unavailable [phone] Encounter Details Date Type Department Care Team (Latest Contact Info) Description 04/16/2020 Transcribe Orders [facility] Laboratory Services [address] [place] [address] Ok Canas, PAC [address] [place] [address] Benign prostatic hyperplasia, unspecified whether [...] Results * PSA DIAGNOSTIC,TOTAL (08/15/2020 9:55 AM DENTAL SCHEDULING COORDINATOR) PSA, TOTAL (PROSTATIC SPECIFIC ANTIGEN) 1.47 0.00 - 4.00 ng/mL 08/15/2020 11:33 AM DENTAL SCHEDULING COORDINATOR [facility] Comment:Performed by chemilu minometric assay on the Siemens ADVIA Centaur. Values obtained with different methods cannot be used interchangeably for patient monitoring. PSA is not a specific test for prostatic carcinoma and can be elevated with benign prostatic disease or following prostatic manipulation. Heterophilic antibodies may interfere with this assay. Blood Venipuncture / Unknown 08/15/2020 9:55 AM DENTAL SCHEDULING COORDINATOR 08/15/2020 10:34 AM DENTAL SCHEDULING COORDINATOR us Ok Canas PAC CHEMISTRY ORDERABLES Final Res ult [facility] [address] [place], [place] [id number] documented in this encounter Visit Diagnoses Diagnosis Benign prostatic hyperplasia, unspecified whether lower urinary tract symptoms present- Primary documented in this encounter Additional Health Concerns Assessment Noted Time PHQ-9 Depression Total Score: 0 01/27/20 19 10:54 AM CDT documented as of this encounter Care Teams Supervisor Transferring And Boxing Relationship Specialty Start Date End Date Jensen Kenyon MD [address] [facility] [address] [place], [place] [id number] PCP - General Internal Medicine 02/01/15 Bibiana Gallagher APRN, SHUTTLE VENEERING SUPERVISOR [address] [place] [address] Consulting Physician Urological Surgery 04/13/18 Liz Hoffmann APRN, SHUTTLE VENEERING SUPERVISOR [address] [place] [address] Nurse Practitioner Orthopaedic Surgery 10/05/18 4 documented as of this encounter
--- OUTSIDE RECORDS SUMMARY | 2025-01-18 03:34 | XMS_ITS | Encounter Summary ---
Author Organization [facility] Address [address] [place] [address] Care Team Providers Care Transportation Logistics Internship Name Role Phone Ana Cueto MD Primary Care Pr ovider Unavailable Mary Chen ALLIGATOR TRAPPER Unavailable [phone] Edwin Jensen MD Primary Care Provider [phone] Encounter Details Date Type Department Care Team (Late Contact Info) Description 03/20/2022 Pop[facility] network Message [facility] [place] [address] [place], [facility] Provider Xray Social History Tobacco Use Types Packs/Day Years Used Date Smoking Tobacco: Never Smokeless Tobacco: Never Alcohol Use Standard Drinks/Week Comments Yes 0 (1 standard drink = 0.6 oz pur e alcohol) OCC PHQ-2 Answer Date Recorded PHQ-2 Score - If the patient scores above 3, please move on to questions 3-9 0 03/18/2022 Sex and Gender Information Value Date Recorded Sex Assigned at Male 08/10/2024 7:36 AM TAPE SEWER Legal Sex Male 8:42 PM CDT Gender Identity Not on file Sexual Orientation Not on file COVID-19 Exposure Response Date Recorded In the last 10 days, have yo u been in contact with someone who was confirmed or suspected to have Coronavirus/COVID-19? No / Unsure 03/17/2022 8:01 AM CDT documented as of this encounter Plan of Treatment Upcoming Encounters Date Type Department Care Team (Late Contact Info) Description 04/25/2025 9:40 AM CDT Office Visit [facility] - [place] [address] [address] [place] [address] Edwin Jensen MD [address] [place] [address] documented as of this encounter Visit Diagnoses Not on filedocumented in this encounter Additional Health Concerns Assessment Noted Time PHQ-9 Depression Total Score: 0 07/01/19 8:59 AM TAPE SEWER documented as of this encounter Care Teams Transportation Logistics Internship Relationship Specialty Start Date End Date Ana Cueto MD PCP - General FAMILY PRACTICE 03/17/22 11/29/22 Edwin Jensen MD [address] [place] [address] PCP - General INTERNAL MEDICINE 11/30/22 Mary Chen NP Referring Physician NURSE PRACTITIONER 05/27/22 documented as of this encounter
--- OUTSIDE RECORDS SUMMARY | 2025-01-18 03:34 | XMS_ITS | Encounter Summary ---
Author Organization [facility] Address [facility] [place] [address] Care Team Providers Care Biscuit Maker Name Role Phone Jensen Kenyon MD Primary Care Provider [phone] Ana Cueto MD Primary Care Pr ovider Unavailable Mary Chen POWER SHOVEL OPERATOR Unavailable [phone] Edwin Jensen MD Primary Care Provider [phone] Encounter Details Date Type Department Care Team (Late st Contact Info) Description 04/21/2018 Abstract [facility] Adult & Geriatric Medicine - [address] [place] [phone] Jensen Kenyon MD [address] [place] [address] Social History Tobacco Use Types Packs/Day Years Used Date Smoking Tobacco: Never Assessed Sex and Gender Information Value Date Recorded Sex Assigned at Male 08/10/2024 7:36 AM COMPLIANCE INVESTIGATOR Legal Sex Male 8:42 PM CDT Gender Identity Not on file Sexual Orientation Not on file documented as of this encounter Plan of Treatment Upcoming Encounters Date Type Department Care Team (Late st Contact Info) Description 04/25/2025 9:40 AM CDT Office Visit [facility]pecialty Care - [place] [address] [address] [place] [address] [place] [address] [place] [address] [address] [place] [address] documented as of this encounter Visit Diagnoses Not on filedocumented in this encounter Care Teams Biscuit Maker Relationship Specialty Start Date End Date Jensen Kenyon MD PCP - General GERIATRICS 12/22/17 03/16/22 Ana Cueto MD PCP - General FAMILY PRACTICE 03/17/22 11/29/22 Edwin Jensen MD [address] [address] PCP - General INTERNAL MEDICINE 11/30/22 Mary Chen NP Referring Physician NURSE PRACTITIONER 05/27/22 documented as of this encounter
--- OUTSIDE RECORDS SUMMARY | 2025-01-18 03:34 | XMS_ITS | Clinical Summary ---
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 Name Role Phone Jensen Kenyon MD Primary Care Provider [phone] Bibiana Gallagher BAG PRESS OPERATOR, PLUMBING INSTRUCTOR Unavailable [phone] Allergies Active Allergy Reactions Criticality Noted Date [...] this topic Medical Devices Implanted Type Area Pot Fluxer Device Identifier Shelf Expiration Date Model / Serial / Lot Continuum Shell Cluster 62nn - [id number] Implanted:Qty: 1 on 04/18/2015 by Harvey Johnson MD at [facility] IMPLANT Left: Hip [employer] 09/25/2024 [id number] / / [id number] Bone Screw 6.5x30 Self-Tap [id number] - [id number] Implanted:Qty: 1 on 04/18/2015 by Harvey Johnson MD at [facility] IMPLANT Left: Hip [employer] 12/25/2024 [id number] / / [id number] Bone Screw 6.5x25 Self-Tap [id number] - [id number] Implanted:Qty: 1 on 04/18/2015 by Harvey Johnson MD at [facility] IMPLANT Left: Hip [employer] 10/26/2023 [id number] / / [id number] M/L Taper Size 12.5 Extended Offset - [id number] Implanted:Qty: 1 on 04/18/2015 by Harvey Johnson MD at [facility] IMPLANT Left: Hip [employer] 10/25/2024 [id number] / / [id number] Femoral Head 12/14 Cocr 36mm +0 - [id number] Implanted:Qty: 1 on 04/18/2015 by Harvey Johnson MD at [facility] IMPLANT Left: Hip [employer] 01/25/2025 [id number] / / [id number] Cys Stent [employer] [id number] Ureteral - [id number] Implanted:Qty: 1 on 10/06/2018 by Tj Beavers MD at [facility] IMPLANT Right: Ureter COOK / INTERVENTIONAL UROLOGY 08/10/2021 [id number] / / [id number] Continuum Trilogy It [employer] It Acetabular Systems Vivacit-E Highly Crosslinked Polyethylene Neutral Liner 36mm Implanted:Qty: 1 on 04/18/2015 by Harvey Johnson MD at [facility] Left: Hip 09/26/2019 [id number] / / [id number] [facility] * Guarantor: JONNA WHITE Account Type Relation to Patient Date of Phone Billing Address Third Green Party Liability Self 1950 [address] [place] [address] [place] [employer] Care Teams Wagon Drill Operator Relationship Specialty Start Date End Date Jensen Kenyon MD [address] [address] PCP - General Internal Medicine 02/01/15 Bibiana Gallagher APRN, PLUMBING INSTRUCTOR [address] [place] [address] Consulting Physician Urological Surgery 04/13/18
--- NOTE | 2025-01-18 03:51 | PC.NURSE ---
Attempted to give patient morphine dose. Pt stated he is not in any pain right now but may want to have a dose later. EDP notified. Morphine returned with department clerk.
[2025-01-18 04:00] VITALS: BP 134/80; PULSE 43; RESP 17; O2SAT 97
--- NOTE | 2025-01-18 04:38 | PC.NURSE ---
Pt called this RN to room stating that he was contemplating on getting a ct scan done. EDP came to bedside to educate and explain risks to pt. Pt then stated he does not want to get the ct scan. EDP notified. No further orders at this time.
== END 2025-01-18 05:15 | disposition left against medical advice (07) ==
PROVIDERS: Emergency Provider Student in an Organized Health Care Education/Training Program
DX: T18.9XXA Foreign body of alimentary tract, part unspecified, initial encounter (principal); D64.9 Anemia, unspecified
CPT/HCPCS: 36415; 70360; 80053; 85025; 99283